=== PATIENT | male | born 1960 | race Caucasian/White ===

== ENCOUNTER 2020-01-06 06:05 | Day surgery (SDC) | payer OTHER ==
[2020-01-01 14:37] VITALS: BMI 34.0
--- OUTSIDE RECORDS SUMMARY | 2020-01-06 06:08 | XMS ---
:1960 Author Organization [facility] Support Name Relationship Address Phone SE Unavailable Unavailable Unavailable MICAHEL KUMAR [address] [place] [address] UNK Unavailable Unavailable Unavailable MICHAEL FLORES [address] [place] [address] Re-disclosure Warning The records that you are about to access may contain information from federally- assisted alcohol or drug abuse programs. If such information is present, then the following federally mandated warning applies: This information has been disclosed to you from records protected by federal confidentiality rules (42 CFR part 2). The federal rules prohibit you from making any further disclosure of this information unless further disclosure is expressly permitted by the written consent of the person to whom it pertains or as otherwise permitted by 42 CFR part 2. A general authorization for the release of medical or other information is NOT sufficient for this purpose. The Federal rules restrict any use of the information to criminally investigate or prosecute any alcohol or drug abuse patient.The records that you are about to access may contain highly sensitive health information, the redisclosure of which is protected by Article 27-F of the [facility] Public Health law. If you continue you may haveaccess to information: Regarding HIV / AIDS; Provided by facilities licensed or operated by the [facility] Office of Mental Health; or Provided by the [facility] Office for People With Developmental Disabilities. If such information is present, then the following [facility] mandated warning applies: This information has been disclosed to you from confidential records which are protected by state law. State law prohibits you from making any further disclosure of this information without the specific written consent of the person to whom it pertains, or as otherwise permitted by law. Any unauthorized further disclosure in violation of state law may result in a fine or fdc sentence or both. A general authorization for the release of medical or other information is NOT sufficient authorization for further disclosure. Insurance Providers Payer name Policy type Policy ID Covered Covered green party's Policy P aisha / Coverage green party ID relationship to [employer] type [employer] [id number] 2 HEALTH PLANS Results ID Date Data Source [id number] 01/02/2020 11:39:00 AM EDT [facility] Name Value Range Interpretation Description Data Sup porting Code Source(s) Document(s ) SARS [facility] coronavirus 2 RNA This lab was ordered by CHEO nuñez [facility] and reported by [facility]. Procedure
[2020-01-06] MEDS ORDERED: BUPIVACAINE HCL/PF 0.5% (5MG/ML) 10 ML VIAL ONE (07:12)
[2020-01-06] MEDS ORDERED: LIDOCAINE 1%/EPI 1:100000 (20 ML MULTI DOSE VIAL) ONE (07:12)
[2020-01-06] MEDS ORDERED: TETRACAINE 0.5% OPHTH SOLN 2 ML BOTTLE ONE (07:12)
[2020-01-06] MEDS ORDERED: ERYTHROMYCIN 0.5% OPHTHALMIC OINTMENT 3.5 GM TUBE ONE (07:12)
[2020-01-06] MEDS ORDERED: POVIDONE-IODINE 5% OPHTHALMIC PREP 30 ML SOLUTION ONE (07:12)
[2020-01-06] MEDS ORDERED: MIDAZOLAM HCL 2 MG/2 ML SINGLE DOSE VIAL ONE (07:33)
[2020-01-06] MEDS ORDERED: PROPOFOL 20 ML ONE ×2 (07:33)
[2020-01-06] MEDS ORDERED: FAMOTIDINE 20 MG/50 ML IVPB 20 MG/50 ML MG IVPB ONE (07:51)
[2020-01-06] MEDS ORDERED: KETAMINE HCL 200 MG/20 ML VIAL ONE (07:59)
[2020-01-06] MEDS ORDERED: ONDANSETRON 4 MG/2 ML VIAL ONE (08:03)
[2020-01-06] MEDS ORDERED: DEXAMETHASONE SOD PHOSPHATE 4 MG/1 ML VIAL ONE (08:03)
[2020-01-06] MEDS ORDERED: KETOROLAC TROMETHAMINE 30 MG/1 ML VIAL ONE (08:03)
[2020-01-06] MEDS ORDERED: VANCOMYCIN 1,000 MG VIAL (RESTRICTED TO ID ONLY) ONE (08:03)
[2020-01-06] MEDS ORDERED: oxyCODONE HCL 5 MG TABLET PO PRN ×2 (09:14)
[2020-01-06] MEDS ORDERED: ONDANSETRON 4 MG/2 ML VIAL IVPUSH PRN (09:14)
[2020-01-06] MEDS ORDERED: PROMETHAZINE HCL 25 MG/1 ML VIAL IVPUSH PRN (09:14)
[2020-01-06 10:03] VITALS: TEMP 98
--- NOTE | 2020-01-06 10:15 | OP ---
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 POSTOPERATIVE DIAGNOSIS: Marked ptosis of right upper lid status post prior ptosis repair over 20 years ago. PROCEDURE: 1. Transcutaneous superior orbitotomy with dissection of scar and identification of dehisced levator and scarified levator. 2. Levator advancement and resuturing to the superior tarsus with a hang-back suture. ANESTHESIA: Local with sedation. COMPLICATIONS: None. ESTIMATED BLOOD LOSS: One to 2 mL. OPERATIVE REPORT: Patient brought to the operating room and placed on the operating room table. Vital signs were monitored by Anesthesia. Tetracaine was placed in both eyes. Patient was given preoperative prophylactic antibiotics due to prior heart surgery and developed what appeared to be a red neck or red man syndrome from the vancomycin. This was allowed to pass and treated with vancomycin and prednisone following which surgery was performed. The lid creases were marked on both upper lids to be symmetric at 12 mm above the lash line which is where his contralateral lid crease was. After intravenous sedation, 2% Xylocaine with 1:100,000 was injected for 1 mL in the right upper lid and massaged for hemostasis. Patient was prepped and draped in usual sterile fashion exposing both eyes. Timeout had been performed. Lid crease was incised and this was carried down through the subcutaneous tissue with a Daviess needle. However, there was no fat. There was complete dehiscence of the levator and the iris was visible through the thickened conjunctiva. Dissection was carried out superiorly in a suborbicularis plane up to the superior orbital rim. Therefore, an anterior superior orbitotomy was performed. The septum was widely opened at the rim and there a fat pad was identified. The fat pad was elevated and meticulously dissected off of the underlying layer and the levator aponeurosis, which was a shortened aponeurosis, and the levator muscle were clearly identified as a plane. The levator was brought down and the anterior superior tarsus was identified with a Daviess needle. Hemostasis was achieved throughout the case. Antibiotic irrigation was used throughout the case. The shortened levator aponeurosis was then reattached to the anterior superior tarsus using partial-thickness tarsal bites and this was tied. The patient was allowed to wake up and placed in the upright position and the lid was seen to be too high in this position and, therefore, the 6-0 nylon suture had to be replaced with a hang-back suture and several attempts were made to try and get the hang-back suture in the appropriate position. Once the appropriate position was obtained with the patient in the upright position, 1 additional nylon suture was placed temporally to the initial suture where it was locking the levator aponeurosis to the underlying tissues to ensure that it would not recess any further. The eyelid position was again tested in the upright position. The lid was everted 2 times to ensure there was no penetration of suture on any part of the posterior surface of the eyelid. After antibiotic irrigation the wound was closed with running 6-0 plain suture. A small amount of anesthetic was given to the skin at this time for comfort. Antibiotic ointment was placed in the eye and on the sutures and the patient was taken to the recovery room in stable condition. LULI MORALES M.D. [id number]
[2020-01-06 11:42] VITALS: BP 128/92; PULSE 78
== END 2020-01-06 11:20 | disposition home or self-care (01) ==
LOC: FASU 06:05
PROVIDERS: ATTEND Ophthalmology
PROC: 08T0XZZ Resection of Right Eye, External Approach (ICD-10-PCS; 2020-01-06)
PROC: 08SN0ZZ Reposition Right Upper Eyelid, Open Approach (ICD-10-PCS; principal; 2020-01-06 08:08)
DX: H02.401 Unspecified ptosis of right eyelid (principal)
CPT/HCPCS: 94760